=== PATIENT | male | born 1965 | race Caucasian/White ===

== ENCOUNTER 2017-04-23 23:12 | Emergency (ER) | payer BC ==
[~2017-04-23] VITALS: Ht 172.7 cm; Wt 115.6 kg
[2017-04-23 23:41] LABS: ADD MIUA? NO; BILIRUBIN NEGATIVE; BLOOD NEGATIVE; COLOR YELLOW ((YELLOW)); GLUCOSE (STRIP) NEGATIVE; KETONES 5; LEUKOCYTES NEGATIVE; NITRITE NEGATIVE; PROTEIN (STRIP) 30; SPECIFIC GRAVITY 1.028 (1.000-1.030); UCUL ADDED? NO; UROBILINOGEN 0.2 MG/DL (0.2-1.0)
[2017-04-23 23:45] LABS: HEMATOCRIT 45.6 % (38.0-50.0); MCH 28.5 PG (29.0-34.0); MCHC 33.6 G/DL (30.0-36.0); MCV 84.9 FL (86-99); MEAN PLAT.VOLUME 9.7 uM^3 (9.0-12.4); PLATELET COUNT 213 K/uL (156-360); RBC DIS.WIDTH-SD 39.7 % (39-53); RED BLOOD COUNT 5.37 M/uL (4.00-5.50); WHITE BLOOD COUNT 8.5 K/uL (4.1-10.2)
[2017-04-23 23:56] LABS: CHLORIDE 99 mEq/L (99-109); POTASSIUM 4.2 mEq/L (3.7-5.4); SODIUM 135 mEq/L (136-147)
[2017-04-23 23:58] LABS: GLUCOSE 121 mg/dL (70-99)
[2017-04-23 23:59] LABS: ANION GAP 10 MEQ/L (2-14)
[2017-04-24] LABS: TOTAL BILIRUBIN 0.8 mg/dL (0.0-1.0)
[2017-04-24 00:01] LABS: ALKALINE PHOSPHATASE 55 IU/L (3-129)
[2017-04-24 00:02] LABS: GFR ESTIMATE (CALCULATED) > 59 mL/min/
[2017-04-24 00:03] LABS: UREA NITROGEN (BUN) 16 mg/dL (9-23)
[2017-04-24 00:05] LABS: LIPASE 9 U/L (1.0-51.0)
[2017-04-24] MEDS ORDERED: ZOFRAN ODT4 MG PO (01:57)
[2017-04-24] MEDS ORDERED: PERCOCET 5/31 TABLET PO (01:57)
[2017-04-24 02:10] VITALS: BP 150/94
== END 2017-04-24 02:11 | disposition home or self-care (01) ==
LOC: EME 23:12 → EXP 23:12
DX: B34.9 Viral infection, unspecified (principal); M54.5 Low back pain; E78.5 Hyperlipidemia, unspecified
CPT/HCPCS: 80053; 81003; 83690; 85027; 99281; 99285; J2270; J2405; J7030; S0028